=== PATIENT | male | born 1965 | race African-American/Black ===

== ENCOUNTER → 2018-01-01 | Outpatient (CLI) | payer OTHER | LOC: MHCPAIN 05:50 | DX: M54.16 Radiculopathy, lumbar region (principal) | CPT/HCPCS: J1100; Q9967 ==

== ENCOUNTER → 2018-01-09 | Outpatient (CLI) | payer OTHER | LOC: MHCPAIN 09:36 | DX: G89.29 Other chronic pain (principal); M47.817 Spondylosis without myelopathy or radiculopathy, lumbosacral region; M54.16 Radiculopathy, lumbar region; M53.3 Sacrococcygeal disorders, not elsewhere classified; M48.061 Spinal stenosis, lumbar region without neurogenic claudication | CPT/HCPCS: G0463 ==

== ENCOUNTER → 2018-03-09 | Outpatient (CLI) | payer OTHER | LOC: MHCPAIN 15:27 | DX: M54.16 Radiculopathy, lumbar region (principal) | CPT/HCPCS: J1100; Q9967 ==

== ENCOUNTER → 2018-05-07 | Outpatient (CLI) | payer OTHER | LOC: MHCPAIN 12:01 | DX: M47.817 Spondylosis without myelopathy or radiculopathy, lumbosacral region (principal); M54.16 Radiculopathy, lumbar region | CPT/HCPCS: J1100; Q9967 ==

== ENCOUNTER → 2019-06-02 | Outpatient (CLI) | payer OTHER | LOC: MHCPAIN 13:15 | DX: M47.817 Spondylosis without myelopathy or radiculopathy, lumbosacral region (principal); M54.16 Radiculopathy, lumbar region | CPT/HCPCS: G0463 ==

== ENCOUNTER → 2019-06-17 | Outpatient (CLI) | payer OTHER | LOC: MHCPAIN 10:58 | DX: M54.16 Radiculopathy, lumbar region (principal); M51.26 Other intervertebral disc displacement, lumbar region ==

== ENCOUNTER → 2019-06-29 | Outpatient (CLI) | payer OTHER | LOC: MHCPAIN 13:29 | DX: M47.817 Spondylosis without myelopathy or radiculopathy, lumbosacral region (principal); M54.16 Radiculopathy, lumbar region | CPT/HCPCS: G0463 ==

== ENCOUNTER → 2020-07-11 | Outpatient (CLI) | payer OTHER | LOC: MHCPAIN 12:30 | DX: M47.816 Spondylosis without myelopathy or radiculopathy, lumbar region (principal); M54.16 Radiculopathy, lumbar region; G89.29 Other chronic pain | CPT/HCPCS: G0463 ==